=== PATIENT | female | born 1945 | race Caucasian/White ===

== ENCOUNTER 2018-08-23 10:28 | Day surgery (SDC) | payer MEDICARE ==
[~2018-08-23 10:28] MED LIST: ACETAMINOPHEN 1,000 MG/100 ML BTL IV ONE; CEFAZOLIN 2 Gram 2 GM/50 ML BAG IVPB ONE; CELECOXIB 100 MG CAPSULE PO ONE; FAMOTIDINE 20MG TABLET PO ONE; MECLIZINE 25 MG TABLET PO ONE; METOCLOPRAMIDE 10 MG TABLET PO ONE; VANCOMYCIN HCL 1,000 MG in DEXTROSE 5 % IN WATER 250 ML IVPB ONE
[2018-08-23] MEDS ORDERED: 0.9 % SODIUM CHLORIDE 10 ML VIAL IVP ONE (10:29)
[2018-08-23] MEDS ORDERED: BUPIVACAINE 0.5% W/EPI MPF 30 ML VIAL IVP ONE (10:29)
[2018-08-23] MEDS ORDERED: TRANEXAMIC ACID 1,000 MG/10 ML ML IV ONE (10:29)
[2018-08-23] MEDS ORDERED: EPHEDRINE SULFATE 50 MG/ML ML IV ONE (10:29)
[2018-08-23] MEDS ORDERED: ONDANSETRON HCL IV 4 MG/2 ML VIAL IVP ONE (10:29)
[2018-08-23] MEDS ORDERED: MIDAZOLAM HCL 2MG/2ML VIAL IV ONE (10:29)
[2018-08-23] MEDS ORDERED: FENTANYL PF 100MCG/2ML VIAL IV ONE (10:29)
[2018-08-23] MEDS ORDERED: ROPIVACAINE HCL (NAROPIN) /PF 5MG/ML 20ML VIAL IV ONE (10:29)
[2018-08-23] MEDS ORDERED: DEXAMETHASONE 4 MG/ML 1ML VIAL IVP ONE (10:29)
[2018-08-23] MEDS ORDERED: PROPOFOL 10 MG/ML VIAL IV ONE (10:29)
[2018-08-23] MEDS ORDERED: LIDOCAINE 2% MDV (20MG/ML) 20ML VIAL IV ONE (10:29)
[2018-08-23 11:36] LABS: ABO GROUP A; ANTIBODY SCREEN NEGATIVE (NEGATIVE); RH TYPE POSITIVE
[2018-08-23] MEDS ORDERED: AL HYDROX/MAG HYDROX 30ML UD PO PRN (16:28)
[2018-08-23] MEDS ORDERED: ACETAMINOPHEN W/ CODEINE 300MG/60MG TABLET PO PRN ×2 (16:28)
[2018-08-23] MEDS ORDERED: DIPHENHYDRAMINE HCL 25 MG CAPSULE PO PRN (16:28)
[2018-08-23] MEDS ORDERED: KETOROLAC 30 MG/ML VIAL IVP PRN ×2 (16:28)
[2018-08-23] MEDS ORDERED: BISACODYL 10 MG SUPP RC PRN (16:28)
[2018-08-23] MEDS ORDERED: ACETAMINOPHEN 325 MG TAB PO PRN (16:28)
[2018-08-23] MEDS ORDERED: ZOLPIDEM TARTRATE 5 MG TABLET PO PRN (16:28)
[2018-08-23] MEDS ORDERED: MAGNESIUM HYDROXIDE 30 ML UDC PO PRN (16:28)
[2018-08-23] MEDS ORDERED: ONDANSETRON HCL IV 4 MG/2 ML VIAL IVP PRN (16:28)
[2018-08-23] MEDS ORDERED: NALOXONE 0.4 MG/1 ML VIAL IVP PRN (16:28)
[2018-08-23] MEDS ORDERED: POTASSIUM CHLORIDE/D5-0.9%NACL 20 MEQ/1,000 ML BAG IV SCH (16:30)
[2018-08-23] MEDS: HYDROCODONE/APAP 10/325 TABLET PO PRN (21:03)
[2018-08-23] MEDS: DOCUSATE SODIUM 100 MG CAPSULE PO SCH (21:24)
[2018-08-23] MEDS: CEFAZOLIN 2 Gram 2 GM/50 ML BAG IVPB SCH (21:25)
[2018-08-23] MEDS ORDERED: MIRTAZAPINE 15 MG TABLET PO SCH (22:00)
[2018-08-24] MEDS: HYDROCODONE/APAP 10/325 TABLET PO PRN (02:09)
[2018-08-24] MEDS: CEFAZOLIN 2 Gram 2 GM/50 ML BAG IVPB SCH (05:01)
[2018-08-24 06:51] LABS: HEMATOCRIT 34.5 % (35.0-47.0); HEMOGLOBIN 11.2 gm/dl (11.6-16.0)
[2018-08-24] MEDS ORDERED: PANTOPRAZOLE SODIUM 40 MG TABLET PO SCH (07:00)
[2018-08-24 07:04] LABS: BLOOD UREA NITROGEN 8 mg/dL (8-23); CREATININE 0.7 mg/dL (0.5-0.9); EST GLOMERULAR FILTRATION RATE > 60 mL/min; GLUCOSE,RANDOM 242 mg/dL (74-109)
--- NOTE | 2018-08-24 08:22 | Rehab Evaluation ---
Patient Information - Patient Information Diagnosis: left knee primary OA Ordered Treatment: OT Evaluate and Treat Status: Initial Evaluation Surgery: Yes (left TKA 08/23/18) Past Medical/Surgical Hx: PAST MEDICAL/SURGICAL HISTORY Past Surgical History left knee scopes hyst guido hernia repair appy tonsils bilat hand sx c scope EGD right big toe sx PMH - Respiratory Hx Respiratory Disorders Yes Hx Bronchitis Yes: gets yrly Hx Pneumonia Yes PMH - Cardiovascular Hx Cardiovascular Disorders No Exercise Tolerance Good PMH - Neuro Hx Neurological Disorders Yes Hx Headaches Yes: occass PMH - GI Hx Gastrointestinal Disorders Yes Hx Gastroesophageal Reflux Yes: on meds good control Comment: esophageal strictures in the past PMH - Hx Genitourinary Disorders No PMH - Endocrine Hx Endocrine Disorders No PMH - Musculoskeletal Hx Musculoskeletal Disorders Yes Hx Arthritis left knee PMH - Psych Hx Psychiatric Problems No PMH - Hematology/Oncology Hx Hematology/Oncology No Disorders Premorbid Status: Detail (Pt lives with son in a 1 story house with basement. Her laundry is in the basement. She plans to stay on the main level for a while. She has 5 steps at front and back entrances and 2 railings at the front and 1 railing at the back entrance. She has a tub/shower combination with a seat, no grab bars and a standard height toilet with a commode. She is responsible for home mgmt and laundry, her son is responsible for meal prep and will be assisting with laundry. She has a commode and standard walker.) Precautions: [place], Fall, Other (WBAT left LE) - Time With Patient Total Time Spent With Patient (Min): 35 Treatment Procedures: Detail (OT eval low complexity) Subjective Information - Subjective Information Per Patient Objective Data - Pain Pain Present: Yes (01/02) - Mental Status Patient Orientation: Oriented x3 - Visual Perception Appears within normal limits for therapeutic activities - ROM Within normal limits (Bebeto UE AROM WNL) - Strength/Tone Within normal limits (Bebeto UE strength WNL) - Coordination Appears within normal limits for therapeutic activities - Transfers Independent (Ind with sit to stand from chair height.) - Balance Balance Sitting: Good Balance Standing: Good - Sensation Intact - Gait Detail (Pt ambulating in room with standard walker and SBA.) - ADL's/IADL's Detail (Pt educated and able to demonstrate learning of modified LE dressing techniques including doffing slipper socks and donning sweatpants and slip on shoes. Reviewed kitchen and shower safety and modifications, pt verbalized understanding.) Therapy Assessment - Therapy Assessment Detail (Pt is Ind with modified LE dressing techniques.) Problem List - Problem List Occupational Therapy Problem List: Detail (No current IP OT problems identified. ) Goals - Goals Occupational Therapy Goals: No current IP OT goals identified. Prognosis - Prognosis Good Plan - Plan Occupational Therapy Plan: No further IP OT recommended. Thank you for this referral.
[2018-08-24] MEDS: DOCUSATE SODIUM 100 MG CAPSULE PO SCH (09:57)
[2018-08-24] MEDS ORDERED: RIVAROXABAN 10 MG TABLET PO SCH (10:00)
[2018-08-24] MEDS ORDERED: FERROUS SULFATE 325 MG TAB PO SCH (10:00)
--- NOTE | 2018-08-24 11:02 | Rehab Evaluation ---
Patient Information - Patient Information Diagnosis: left knee primary OA Ordered Treatment: PT Evaluate and Treat Status: Initial Evaluation Surgery: Yes (left TKA 08/23/18) Date of Surgery: 08/23/18 Past Medical/Surgical Hx: PAST MEDICAL/SURGICAL HISTORY Past Surgical History left knee scopes hyst guido hernia repair appy tonsils bilat hand sx c scope EGD right big toe sx PMH - Respiratory Hx Respiratory Disorders Yes Hx Bronchitis Yes: gets yrly Hx Pneumonia Yes PMH - Cardiovascular Hx Cardiovascular Disorders No Exercise Tolerance Good PMH - Neuro Hx Neurological Disorders Yes Hx Headaches Yes: occass PMH - GI Hx Gastrointestinal Disorders Yes Hx Gastroesophageal Reflux Yes: on meds good control Comment: esophageal strictures in the past PMH - Hx Genitourinary Disorders No PMH - Endocrine Hx Endocrine Disorders No PMH - Musculoskeletal Hx Musculoskeletal Disorders Yes Hx Arthritis left knee PMH - Psych Hx Psychiatric Problems No PMH - Hematology/Oncology Hx Hematology/Oncology No Disorders Premorbid Status: Detail (Pt lives with son in a 1 story house with basement. Her laundry is in the basement. She plans to stay on the main level for a while. She has 5 steps at front and back entrances and 2 railings at the front and 1 railing at the back entrance. She has a tub/shower combination with a seat, no grab bars and a standard height toilet with a commode. She is responsible for home mgmt and laundry, her son is responsible for meal prep and will be assisting with laundry. She has a commode and standard walker.) Precautions: [place], Fall, Other (WBAT left LE) - Time With Patient Total Time Spent With Patient (Min): 30 Treatment Procedures: Detail (Initial Evaluation, gait training) Subjective Information - Subjective Information Per Patient (The patient has complaints of L knee pain, level 6 using 0-10 pain scale.) Objective Data - Mental Status Patient Orientation: Oriented x3 - Visual Perception Appears within normal limits for therapeutic activities - ROM Not within normal limits (L knee AROM is limited secondary to s/p surgery. All other LE AROM was WNL.) - Strength/Tone Not within normal limits (The patient's L LE strength was not tested s/p surgery , however strength was functional ie: patient was able to complete a SLR. The patient's R LE strength was WNL.) - Bed Mobility Independent (The patient was independent with supine to and from sit transfer and scooting up in bed.) - Transfers Independent (The patient was independent with sit to and from stand transfer.) - Balance Balance Sitting: Good Balance Standing: Good - Sensation Intact - Gait Detail (The patient ambulated independently with standard walker a distance of 90 feet x 1 WBAT on the L LE. The patient ambulated on steps with use of railing and folded walker with supervision for safety.) Therapy Assessment - Therapy Assessment Detail (The patient was indpendent with all mobility and ambulation and has met all inpatient PT goals. The patient is to receive Home PT.) Patient Education - Patient Education Teaching Topic: Exercise/Activity (The patient completed TKA HEP independently including: heel slides, quad sets, gluteal sets, hamstring sets, ankle pumps and SLR.) Response: Return Demonstration Teaching Method: Demonstration, Handout Teaching Recipient: Patient Barriers To Learning: None Problem List - Problem List Physical Therapy Problem List: Detail ( Decreased L LE and limited L knee ROM as to be expected s/p surgery.) Occupational Therapy Problem List: Detail (No current IP OT problems identified. ) Goals - Goals Physical Therapy Goals: The patient has met all inpatient PT goals and is discharged from inpatient PT. Occupational Therapy Goals: No current IP OT goals identified. Plan - Plan Physical Therapy Plan: The patient is discharged from inpatient PT and is to receive Home PT services. Occupational Therapy Plan: No further IP OT recommended. Thank you for this referral.
--- NOTE | 2018-08-24 12:30 | Operative Note ---
DATE OF SURGERY: 08/23/2018 PREOPERATIVE DIAGNOSIS: Profound end-stage arthrosis of the left knee. POSTOPERATIVE DIAGNOSIS: Profound end-stage arthrosis of the left knee. OPERATION: Cemented left total knee arthroplasty using Maddox and Nephew components with a size 5 Oxinium femur, a size 4 stem tibia baseplate, a 9 mm lipped tibial insert, and a 32 mm all plastic patella. Staff Surgeon: Benjy Leigh MD Anesthesia: Spinal. PREPARATION: Chloraprep. INDIVIDUAL CONSIDERATIONS: None. PROCEDURE: The patient was taken to the operating room, placed supine on the operating room table. She had a successful induction of spinal anesthetic. The left lower extremity was prepped and draped in the usual fashion. The patient had a midline approach to the knee. The limb was elevated and tourniquet was inflated to 250 mmHg. Sharp dissection carried down through skin and subcutaneous tissue. Small veins were coagulated with a Bovie. A medial arthrotomy was performed. The patella was everted and the knee was flexed. The patient had exposed bone on the medial patellofemoral compartments with large marginal osteophytes. Fat pad was resected, ACL was sacrificed, provisional anterior meniscectomies were performed. The capsule was released from the medial proximal tibia. The initial femoral ferry pilot hole was then made freehand. The intramedullary femoral cutting jig was placed. It was cut in 7.0 degrees of valgus and adjusted for rotation and secured with pins for a 10 mm resection. The initial transverse cut was then made. The skin guide was placed in the anterior and posterior ferry pilot holes. It was found that a size 5 would be appropriate. The anterior and posterior cuts followed by chamfer cuts were made. Osteophytes removed, and a size 5 trial was placed and found to fit well. The tibia was brought forward, and the remainder of the meniscal remnants removed with a Bovie. The extraarticular tibial cutting jig was placed. It was cut in neutral with a 3-degree AP slope. Care was taken to adjust the rotation and flexion using the extraarticular alignment guide and bony landmarks. It was set for a 9 mm resection keyed off the high lateral side and secured with pins. When cutting the tibia, care was taken to preserve the PCL insertion on the tibia. After removing osteophytes, I found that a size 4 fit appropriately. It was adjusted for rotation and secured with pins. With a 9 mm lipped trial and femoral trial, there was excellent motion and stability, ligamentous balance, rotation, and alignment were thought to be normal. The femoral ferry pilot holes were impacted and the tri-flange tibial keel stamp was impacted, and these trial components were removed. The patient had a thick patella. Roughly 9 mm of bone was removed freehand. It was found that a 32 mm patella would be appropriate, and the 3 ferry pilot holes were drilled. The tourniquet was let down briefly to get bleeders posteriorly and then placed back up again. The knee was then thoroughly irrigated out with pulsatile Betadine and saline to remove any visual or palpable debris. Bony surfaces were then dried. A size 4 stem tibia baseplate was cemented into place followed by impaction of the lipped 9 mm highly crosslinked tibial insert followed by cementing in the size 5 Oxinium femur followed by cementing in the 32 mm patella. The implant surfaces were compressed, excess cement was removed, and after the cement had set, there was excellent motion and stability, ligamentous balance, rotation, alignment, and patellofemoral tracking were normal. No lateral release was required. After again thorough irrigation, tourniquet was let down. Hemostasis was obtained with a Bovie. The skin, periosteum, and subcu were infiltrated with 30 mL of 0.5% Marcaine with epinephrine. The capsule was then closed with a running #2 quill, subcu was closed in layers with running 0 quill, skin was closed with silverio. The patient did receive 1 g of tranexamic acid preoperatively. I mixed 1 g of tranexamic acid with 30 mL of saline and injected into the knee through a sterile 18-gauge needle and a sterile bulky compressive PENG-type dressing was applied. The patient tolerated the procedure well. Needle and sponge counts were correct. Estimated blood loss was minimal, and he was taken back to recovery in good condition. There were no complications. LIAM
--- NOTE | 2018-08-24 15:31 | Discharge Summary ---
DATE OF ADMISSION: 08/23/2018 DATE OF DISCHARGE: 08/24/2018 DATE OF SURGERY: 08/23/2018 HISTORY: The patient is a delightful 73-year-old female who presents with end-stage arthrosis of her knee. She was admitted after total knee arthroplasty. Postoperatively she did fine. She was independent with therapy the morning of discharge. Her hemoglobin on discharge was 11.2, did not require transfusion. The plan is to discharge her home in the care of her family. Home PT and visiting nurse has been arranged. She will be given [place] for pain and Xarelto followed by aspirin for DVT prophylaxis. Her glucose ran a little bit high. She has no other history of diabetes but I told her to see her family doctor about that. She will have her sutures removed by the visiting nurse in 2 weeks. She will follow up in my office in 4 weeks. She did have a [id number] evaluation for home care on 08/24/2018. We are ordering visiting nurse for wound care and home PT. DIAGNOSIS: Osteoarthritis for a left total knee arthroplasty. The patient meets homebound status. She has impaired mobility because of recent surgery and pain. She requires PT for reconditioning and nursing to monitor her incision and suture removal. LIAM
== END 2018-08-24 13:30 | disposition home or self-care (01) ==
LOC: SUR 10:28 → MEDSURG 18:02 → SUR 08-24 13:30
PROVIDERS: ATTEND Orthopaedic Surgery
DX: M17.12 Unilateral primary osteoarthritis, left knee (principal); K21.9 Gastro-esophageal reflux disease without esophagitis
CPT/HCPCS: 27447; 01402; 64447; 85018; 85014; 80048; 86900; 86901; 86850; 76942; J2405; J3370; J3010; J0690 ×2; J3490 ×3; J2795; C1776; J3480; J7060